=== PATIENT | male | born 1960 | race Caucasian/White ===

== ENCOUNTER 2022-08-18 09:55 | Outpatient (CLI) | payer OTHER, SELFPAY | END 2022-08-18 09:56 | disposition home or self-care (01) | LOC: NFLDREF 08-19 08:59 | PROVIDERS: PCP Emergency Medicine; Referring Provider Emergency Medicine; Visit Provider Emergency Medicine | DX: E78.00 Pure hypercholesterolemia, unspecified (principal); I10 Essential (primary) hypertension; Z12.5 Encounter for screening for malignant neoplasm of prostate | CPT/HCPCS: 80053; 80061; 84153 ==

== ENCOUNTER 2023-02-27 13:28 | Outpatient (CLI) | payer OTHER, SELFPAY ==
--- NOTE | 2023-02-27 13:45 | MR_ITS ---
[address] [address] Phone:?[phone] Fax:?[phone] Referring Physician Information: Mitch Rincon M.D. [id number] [facility] [address] Phone:?[phone] Fax:?[phone] Patient:Ab Germain D.O.B:?1960 Sex:?Male Phone:?[phone] [facility] MRN:?[id number] Exam Date:?02/27/2023 EXAM: MRI of the RIGHT KNEE, without contrast CLINICAL HISTORY: Right knee pain. Evaluate for medial meniscal tear. COMPARISONS: Plain radiographs 05/10/2018. Plain radiographs 05/08/2018. TECHNICAL: MR sequences of the right knee: sagittals: PD, PDFS coronals: PD, STIR axials: PD, T2 FS CONTRAST: None SEDATION: None FINDINGS: Bones: No fracture, bone marrow contusion, or other suspicious bone marrow signal abnormality. Patellofemoral joint: Cartilage: Diffuse slight superficial chondral fibrillation over the patella and diffuse slight grade II chondromalacia over the trochlear groove, not significantly progressed compared to previous MRI 05/08/2018. Retinacula: The medial and lateral retinacula are intact. Fat pads: The infrapatellar, quadriceps, and prefemoral fat pads are unremarkable. Knee joint: Effusion: Trace joint effusion. Popliteal cyst: None. Intra-articular bodies: None. Posteromedial corner: The semimembranosus and pes anserine tendons are intact. Medial compartment: Medial meniscus: No meniscal tear. Cartilage: Slight grade II chondromalacia over the lateral weightbearing portion of the medial femoral condyle, not significantly progressed compared to previous MRI 05/08/2018. Lateral compartment: Lateral meniscus: Horizontal tear from the anterior horn through body of the lateral meniscus and mucoid degeneration of the anterior root of the lateral meniscus, unchanged compared to previous MRI 05/10/2018. The anterior parameniscal cyst seen on previous MRI 05/10/2018 is no longer present. Cartilage: Predominantly intact. Ligaments: Anterior cruciate ligament: Intact. Posterior cruciate ligament: Intact. Medial collateral ligament: Intact. Posterior oblique ligament: Intact. Fibular collateral ligament: Intact. Posterolateral corner: The distal biceps femoris tendon, iliotibial band, popliteus tendon, popliteus muscle, popliteofibular ligament, and arcuate ligament are intact. Extensor mechanism: Patellar tendon: Intact. Quadriceps tendon: Intact. IMPRESSION: 1. Horizontal tear from the anterior horn through body of the lateral meniscus and mucoid degeneration of the anterior root of the lateral meniscus, unchanged compared to previous MRI 05/10/2018. The anterior parameniscal cyst seen on previous MRI 05/10/2018 is no longer present. 2. Trace right knee joint effusion. 3. Otherwise, essentially unremarkable MRI of the right knee without medial meniscal tear or ligamentous injury. RCB Electronically signed on 02/27/2023 3:46:00 PM by Grzegorz Cooper M.D.
== END 2023-02-27 13:29 | disposition home or self-care (01) ==
LOC: MRI 13:29
PROVIDERS: PCP Emergency Medicine; Visit Provider Orthopaedic Surgery
DX: M25.561 Pain in right knee (principal); S83.281A Other tear of lateral meniscus, current injury, right knee, initial encounter; M25.461 Effusion, right knee
CPT/HCPCS: 73721

== ENCOUNTER 2023-03-14 08:00 | Outpatient (RCR) | payer OTHER, SELFPAY | END 2023-06-08 09:56 | disposition home or self-care (01) | PROVIDERS: PCP Emergency Medicine; Visit Provider Orthopaedic Surgery | DX: M25.561 Pain in right knee (principal); M25.571 Pain in right ankle and joints of right foot; Z74.09 Other reduced mobility; R53.1 Weakness; R26.2 Difficulty in walking, not elsewhere classified; G57.00 Lesion of sciatic nerve, unspecified lower limb; M62.89 Other specified disorders of muscle; Z51.89 Encounter for other specified aftercare | CPT/HCPCS: 97110; 97161; 97162 ==

== ENCOUNTER 2023-09-13 09:16 | Outpatient (CLI) | payer OTHER, SELFPAY | END 2023-09-13 09:17 | disposition home or self-care (01) | LOC: NFLDREF 09-14 07:03 | PROVIDERS: PCP Emergency Medicine; Referring Provider Emergency Medicine; Visit Provider Emergency Medicine | DX: I10 Essential (primary) hypertension (principal); B35.6 Tinea cruris; R73.01 Impaired fasting glucose; Z12.5 Encounter for screening for malignant neoplasm of prostate; E78.2 Mixed hyperlipidemia | CPT/HCPCS: 80053; 80061; G0103 ==

== ENCOUNTER 2023-11-12 19:22 | Observation (INO) | payer OTHER, SELFPAY ==
[2023-11-12] VITALS (24 sets, daily range): BP systolic 137–168; BP diastolic 79–97; PULSE 59–70; RESP 16–18; TEMP 36.3–36.4; O2SAT 94–98; BMI 32.1; BMI 32.2
--- NOTE | 2023-11-12 19:52 | ED.GENADULT ---
HPI - General Adult General Time Seen by Provider: 19:52 Date Seen: 11/12/23 Chief complaint: Dizziness/Vertigo Stated complaint: Dizzy spells, sweating Time Seen by Provider: 11/12/23 19:48 Source: patient and RN notes reviewed Mode of arrival: ambulatory Limitations: no limitations History of Present Illness HPI narrative: This 63-year-old male is coming in with concern of episodes of vertigo, it has happened about 3 times now. The 1st time he got up from his desk around 3:00 p.m. and the room started spinning. It took probably minutes for this to settle down, not likely longer than 10 minutes. He had a 2nd episode later while he was just walking in his RV, had to sit down as he started spinning, he noted significant profuse sweating with this 1 and took probably about 30 minutes for the sweating to go way, vertigo or spinning did not last probably more than 5-10 minutes. He noted while he was lying in the bed here, just looked up to the ceiling, does not think he moves his head much, the ceiling looked like it was moving back and forth. He has been able to ambulate okay but states he does not just feel right. He has noted no double vision or blurry vision. No tinnitus or hearing changes. He has never had vertigo before. After the 1st episode, he checked his blood pressure with a wrist monitor and it was systolic of 190. He had a friend who is on the rescue service with him and came over and did a manual blood pressure, systolic was in the 150 range. He does take an 81 mg aspirin, last use last night. He is treated for hypertension and hyperlipidemia. They were worried that it could potentially be is heart. He has had no chest pain, no palpitations, no sense of irregular heartbeat, no shortness of breath. He has never had any heart disease or cardiac diagnoses before. He has a brother who has had a couple cardiac stents placed. Patient is a nonsmoker, some social alcohol use. All of these episodes have resolved in minutes. He does notably state though that he just still does not quite feel right. He has been able to walk but does not feel like it was quite normal. He would not states that he has feeling like he is listing or falling. Treatments prior to arrival: none Related Data Home Medications ?Medication ?Instructions ?Recorded ?Confirmed aspirin 81 mg tablet,delayed 81 mg PO DAILY 08/16/22 11/13/23 release (Ayanna Low Dose Aspirin) celecoxib 200 mg capsule 200 mg PO BID 11/13/23 11/13/23 lisinopril 20 1 tab PO DAILY 11/13/23 11/13/23 mg-hydrochlorothiazide 12.5 mg tablet rosuvastatin 20 mg tablet 20 mg PO HS 11/13/23 11/13/23 Allergies Allergy/AdvReac Type Severity Reaction Status Date / Time No Known Allergies Allergy Unknown Unknown Verified 09/13/23 08:14 Review of Systems Status of ROS: Reports: 6 or more systems reviewed and unremarkable except as noted in History and below [facility] Medical History (Updated 11/14/23 @ 08:12 by Mary Sosa MD) Cervical radiculopathy ?M54.12 - Radiculopathy, cervical region (ICD-10) Hyperlipidemia ?E78.5 - Hyperlipidemia, unspecified (ICD-10) Hypertension ?I10 - Essential (primary) hypertension (ICD-10) Left cervical radiculopathy ?M54.12 - Radiculopathy, cervical region (ICD-10) Tubular adenoma (07/15/20) ?D36.9 - Benign neoplasm, unspecified site (ICD-10) Tear of lateral meniscus of right knee ?S83.281A - Other tear of lateral meniscus, current injury, right knee, initial encounter (ICD-10) Right medial knee pain ?M25.561 - Pain in right knee (ICD-10) Osteoarthritis of right ankle ?M19.071 - Primary osteoarthritis, right ankle and foot (ICD-10) Pes anserinus bursitis of right knee ?M70.51 - Other bursitis of knee, right knee (ICD-10) Knee pain, right ?M25.561 - Pain in right knee (ICD-10) Elevated fasting glucose ?R73.01 - Impaired fasting glucose (ICD-10) Tinea cruris ?B35.6 - Tinea cruris (ICD-10) Screening for prostate cancer ?Z12.5 - Encounter for screening for malignant neoplasm of prostate (ICD-10) Encounter for annual physical exam ?Z00.00 - Encounter for general adult medical examination without abnormal findings (ICD-10) Surgical History S/P right knee arthroscopy (05/24/18) ?Z98.890 - Other specified postprocedural states (ICD-10) Status post arthroscopy of right shoulder (07/09/15) ?Z98.890 - Other specified postprocedural states (ICD-10) Status post arthroscopy of left shoulder (02/23/17) ?Z98.890 - Other specified postprocedural states (ICD-10) History of total left hip replacement ?Z96.642 - Presence of left artificial hip joint (ICD-10) History of colonoscopy (07/15/20) ?Z98.890 - Other specified postprocedural states (ICD-10) Family History Sister Breast cancer Brother Coronary artery disease Social History 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, What is your current living situation?: I presently have a place to live Problems where you live: no known problems Problems where you live details: n/a In the past 12 months, utilities in danger of being shut off: no In past 12 months, lack of transportation kept you from medical appts, meetings, work, or getting things needed for daily living: no In the past 12 mos, have been you worried that your food would run out before you had money to buy more?: never true In the past 12 mos, the food you bought just didn't last and you didn't have money to buy more?: never true Highest level of school completed/degree received: high school graduate Smoking Status: Never smoker How often do you have a drink containing alcohol: 2-3 times a week Alcohol type: beer Alcohol type details: reports 10 beers/week How many standard drinks containing alcohol do you have on a typical day: 1 or 2 How often do you have six or more drinks on one occasion: Never AUDIT-C Alcohol total score: 3 Non-prescribed substance use: denies use Caffeine: Yes (coffee) How often does anyone, including family, friends and others, physically hurt you: never How often does anyone, including family, friends and others, insult or talk down to you: never How often does anyone, including family, friends and others, threaten you with harm: never How often does anyone, including family, friends and others, scream or curse at you: never Little interest or pleasure in doing things: not at all Feeling down, depressed, or hopeless: not at all Exam Const: Vital Signs, click to edit/add: Vital Signs - 24 hr 11/12/23 19:28 11/12/23 19:48 11/12/23 19:49 Temperature 97.4 F L Pulse Rate 63 61 Pulse Rate [Pulse Oximeter] 64 Respiratory Rate 18 Blood Pressure 143/83 H Blood Pressure [Ri ght Upper Arm] 168/92 H Pulse Oximetry 98 95 96 Oxygen Delivery Me thod Room Air 11/12/23 20:00 11/12/23 20:02 11/12/23 20:15 Temperature Pulse Rate 61 63 64 Pulse Rate [Pulse Oximeter] Respiratory Rate Blood Pressure 151/86 H Blood Pressure [Ri ght Upper Arm] Pulse Oximetry 97 96 96 Oxygen Delivery Me thod 11/12/23 20:32 11/12/23 20:33 11/12/23 20:35 Temperature Pulse Rate 69 63 Pulse Rate [Pulse Oximeter] Respiratory Rate Blood Pressure Blood Pressure [Ri ght Upper Arm] Pulse Oximetry 98 94 97 Oxygen Delivery Me thod 11/12/23 20:37 11/12/23 20:45 11/12/23 21:04 Temperature Pulse Rate 63 59 L 69 Pulse Rate [Pulse Oximeter] Respiratory Rate Blood Pressure 144/82 H Blood Pressure [Ri ght Upper Arm] Pulse Oximetry 97 97 98 Oxygen Delivery Me thod 11/12/23 21:05 11/12/23 21:15 11/12/23 21:30 Temperature Pulse Rate 66 64 63 Pulse Rate [Pulse Oximeter] Respiratory Rate 16 Blood Pressure Blood Pressure [Ri ght Upper Arm] Pulse Oximetry 95 95 97 Oxygen Delivery Me thod 11/12/23 21:32 11/12/23 21:33 11/12/23 21:45 Temperature Pulse Rate 64 61 64 Pulse Rate [Pulse Oximeter] Respiratory Rate Blood Pressure 142/81 H Blood Pressure [Ri ght Upper Arm] Pulse Oximetry 95 96 98 Oxygen Delivery Me thod This 63-year-old male is alert, interactive, no apparent distress. He is ambulatory into the ED of his own accord. Pupils are equal round reactive, sclera clear, extraocular muscles intact with a conjugate gaze but do note some right beating horizontal nystagmus. With cover, uncover I testing there is no movement in his eyes. He does not have any catch-up saccades with moving his head. I cannot precipitate any symptoms with [place]-Hallpike maneuver on either side. Symmetrical facial function. Neck is supple, no masses, no adenopathy. Lungs are clear, good air entry, no wheezing crackles. CV regular rate and rhythm no murmur. Abdomen is soft, no rebound or guarding, organomegaly. Strength is 5/5 and symmetric throughout upper extremities and lower extremities. He has normal sensation. On left [id number], just misses his nose to the left on the left side occasionally. I note no terminal dysmetria just slightly missing terminal target. He hits the end of his nose with his right finger. No tremor. Normal sensation throughout. No lower extremity edema. Documenting provider has reviewed patient's vital signs: yes Course Course ED Course: Reviewed with patient that his symptoms seem to be consistent with vertigo, this is a neurologic process and is much less concerning for any cardiac issue. We did discuss the need to ensure no underlying rhythm disturbance, EKG obtained on arrival shows sinus bradycardia, he is in sinus rhythm on the monitor while I am in with him, will continue on cardiac monitoring. Discussed that it can be difficult to figure out of its peripheral versus central. Will proceed with head CT and will just talk to Neurology. They may recommend doing the CTA. His symptoms certainly seem to be consistent with peripheral vertigo process but he does have risk factors for central disease. Did reassure them that we will do a troponin. Will give full complement of labs. Reevaluation(s) Time of Reevaluation #1: 20:32 Reevaluation #1: Nursing staff notified me that patient became acutely dizzy with spinning again, was nauseated. Initiate normal saline and Zofran, will order meclizine for him and low-dose IV Versed as Ativan is in short supply. Time of Reevaluation #2: 22:10 Consultations Consultation #1: Did contact Stroke Neurology and spoke with Dr. Barahona. Given the severity of his episode with the sweating, non reproducible with [place]-Hallpike, he did want to proceed with the vessel imaging. We cannot do MRI at this time, he will have me do CT angio of the head neck. Has had his head CT already, we will push all these images up to him. 22:01 Dr. Barahona did call back. 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 He thinks given that this patient is having fluctuating symptoms, should be observed. MRI of his brain could be done tomorrow. Time: 20:30 Consultation #2: Did speak with hospitalist Dr. Alexandra. He will review patient's chart, be down shortly and we will discuss patient further for observation hospitalization an MRI tomorrow. Time: 22:14 Vital Signs Vital signs: Initial Vital Signs Temperature 97.4 F L 11/12/23 19:28 Temperature Source Temporal Artery Scan 11/12/23 19:28 Pulse Rate 64 11/12/23 19:28 Respiratory Rate 18 11/12/23 19:28 Blood Pressure 168/92 H 11/12/23 19:28 Blood Pressure Mean 117 H 11/12/23 19:28 Pulse Oximetry 98 11/12/23 19:28 Oxygen Delivery Method Room Air 11/12/23 19:28 Vital Signs Temperature 97.4 F L 11/12/23 19:28 Pulse Rate 64 11/12/23 19:28 Respiratory Rate 18 11/12/23 19:28 Blood Pressure 168/92 H 11/12/23 19:28 Pulse Oximetry 98 11/12/23 19:28 Oxygen Delivery Method Room Air 11/12/23 19:28 Temperature 97.6 F 11/13/23 10:36 Pulse Rate 74 11/13/23 10:36 Respiratory Rate 18 11/13/23 10:36 Blood Pressure 144/88 H 11/13/23 10:46 Pulse Oximetry 96 11/13/23 10:36 Oxygen Delivery Method Room Air 11/13/23 10:36 Medications Administered Medications: Discontinued Medications Generic Name Dose Route Start Last Admin Trade Name Freq PRN Reason Stop Dose Admin Aspirin 81 mg 11/12/23 22:11 11/12/23 22:22 Aspirin 81 Mg Tab.Chew PO 11/12/23 22:12 81 mg ONCE ONE Administration Aspirin 81 mg 11/13/23 09:00 06/18/24 09:41 Aspirin 81 Mg Tablet Ec PO 81 mg DAILY VI Administration Diazepam 5 mg 11/12/23 20:39 11/12/23 20:52 Diazepam 5 Mg Tablet PO 11/12/23 20:40 5 mg ONCE ONE Administration Hydrochlorothiazide 12.5 mg 11/13/23 09:00 11/13/23 09:42 Hydrochlorothiazide 12.5 Mg Capsule PO 12.5 mg DAILY VI Administration Sodium Chloride 1,000 mls @ 1,000 mls/hr 11/12/23 20:34 11/12/23 21:55 0.9 % Sodium Chloride 1000 Ml IV 11/12/23 21:33 Infused .Q1H VI Infusion Lisinopril 20 mg 11/13/23 09:00 11/13/23 09:41 Lisinopril 20 Mg Tablet PO 20 mg DAILY VI Administration Meclizine HCl 25 mg 11/12/23 20:35 11/12/23 20:53 Meclizine Hcl 25 Mg Tablet PO 11/12/23 20:36 25 mg ONCE ONE Administration Ondansetron HCl 4 mg 11/12/23 20:33 11/12/23 20:52 Ondansetron 2 Mg/Ml Inj IVP 11/12/23 20:34 4 mg ONCE ONE Administration Rosuvastatin Calcium 20 mg 11/12/23 23:30 11/13/23 02:58 Rosuvastatin Calcium 10 Mg Tablet PO 20 mg HS VI Administration Sodium Chloride 5 ml 11/13/23 09:00 11/13/23 09:42 Sodium Chloride 0.9 % (Flush) 10 Ml Syringe IVF 5 ml BID VI Administration Medical Decision Making Lab Data Lab results reviewed: Yes I reviewed the patient's lab results Labs: Lab Results 11/12/23 Range/Units 20:38 WBC 11.66 H (4.50-11.00) K/uL RBC 4.54 (4.30-5.90) m/uL Hgb 13.9 (13.5-17.5) gm/dL Hct 41.8 (37.0-53.0) % MCV 92 (80-100) fL MCH 31 (26-34) pg MCHC 33 (32-36) gm/dL RDW Coeff of Zo 12.4 (11.5-15.5) % Plt Count 201 (140-440) K/uL Neut % (Auto) 81.9 H (42.0-72.0) % Lymph % (Auto) 11.2 L (20-44) % Woodson % (Auto) 5.7 (0.0-11.0) % Eos % (Auto) 0.7 (0.0-7.0) % Baso % (Auto) 0.2 (0.0-3.0) % Neut # (Auto) 9.50 H (1.7-7.0) K/uL Lymph # (Auto) 1.30 (0.90-2.90) K/uL Woodson # (Auto) 0.70 (0.00-0.90) K/UL Eos # (Auto) 0.10 (0.00-0.50) K/uL Baso # (Auto) 0.00 (0.00-0.30) K/uL Abs Immat Gran (auto) 0.00 (0.00-0.30) K/uL Imm/Tot Granulo (auto) 0.3 % INR 1.02 (0.91-1.10) APTT 26 (23-33) Seconds Sodium 137 (135-149) mmol/L Potassium 4.0 (3.6-5.1) mmol/L Chloride 106 (96-114) mmol/L Carbon Dioxide 25 (20-32) mmol/L Anion Gap 6 L (7-15) mEq/L BUN 20 (7-30) mg/dL Creatinine 0.9 (0.5-1.5) mg/dL Estimated Creat Clear 79.48 Estimated GFR 95 ml/min Glucose 119 H (60-115) mg/dL Calcium 9.1 (8.4-10.6) mg/dL Magnesium 2.2 (1.5-2.6) mg/dL Total Bilirubin 0.6 (0.1-1.5) mg/dL AST 27 (12-35) U/L ALT 24 (4-50) U/L Alkaline Phosphatase 61 (40-150) U/L Troponin I < 0.01 L (0.01-0.04) ng/mL NT-Pro-B Natriuret Pep 135 pg/mL Total Protein 6.3 (6.0-8.3) g/dL Albumin 4.2 (3.3-5.0) g/dL TSH 1.670 (0.270-4.200) uIU/mL Imaging Data CT scan - head: Attestation: I have reviewed the pertinent imaging results. Radiologist's impression: Patient: KANDI TORO Facility:?[facility] Patient ID:?[id number] Site Patient ID:?[id number]. Site :?1960 Study:?CT-Head W/O-11/12/2023 8:32:10 PM Ordering Physician:Tutu Hernandez Final Report: Indication: Vertigo. Technique: CT of the brain was performed without intravenous contrast. Comparison: None relevant available at this institution. Findings: No acute blurring of the phelps-white differentiation. There is no intracranial hemorrhage. The ventricles are proportionate to the cerebral sulci. The 4th ventricle is midline. Basal cisterns appear patent. No abnormal extra-axial fluid collection identified. There is no intracranial mass, mass effect or midline shift identified. No depressed calvarial fracture. Impression: No acute intracranial process. Please note that all CT scans at this facility use dose modulation, iterative reconstruction, and/or weight-based dosing when appropriate to reduce radiation dose to as low as reasonably achievable. Dictated by Dao Sherman MD @ 11/12/2023 9:02:10 PM (Electronic Signature) CT- Other: Attestation: I have reviewed the pertinent imaging results. Radiologist's impression: Patient: KANDI TORO Facility:?[facility] Patient ID:?[id number] Site Patient ID:?[id number]. Site :?1960 Study:?CT-Neck Angio CTA NECK W/ISOVUE 370 95CC-11/12/2023 9:11:56 PM Ordering Physician:?Sheila Hernandez Preliminary Report: Preliminary Report: : CTA head: No proximal intracranial arterial occlusions, filling defects or high-grade stenoses. CTA neck: Moderate right proximal internal carotid atherosclerotic disease. Left internal carotid artery is patent. No dissection identified. Dictated by Dao Sherman MD @ 11/12/2023 9:26:17 PM Read by:?Dao Sherman MD @11/12/2023 9:26:31 PM ECG Data Attestation: I personally reviewed and interpreted this ECG as follows: (Sinus bradycardia, 58 beats per minute. No ischemia or infarct. QT corrected 426 milliseconds.) Prior ECG tracings: not available for review Discharge Plan Discharge Clinical Impression: Vertigo Patient Disposition: Admitted As Observation Condition: Improved Activity Level: Activity as Tolerated Discharge Diet: Regular
--- NOTE | 2023-11-12 20:13 | CRLHL7_ITS ---
For Patients: As a result of the Century Cures Act, medical imaging exams and procedure reports are released immediately into your electronic medical record. You may view this report before your referring provider. If you have questions, please contact your health care provider. Indication: Vertigo. Technique: CT of the brain was performed without intravenous contrast. Comparison: None relevant available at this institution. Findings: No acute blurring of the phelps-white differentiation. There is no intracranial hemorrhage. The ventricles are proportionate to the cerebral sulci. The 4th ventricle is midline. Basal cisterns appear patent. No abnormal extra-axial fluid collection identified. There is no intracranial mass, mass effect or midline shift identified. No depressed calvarial fracture. Impression: No acute intracranial process. Please note that all CT scans at this facility use dose modulation, iterative reconstruction, and/or weight-based dosing when appropriate to reduce radiation dose to as low as reasonably achievable. Dictated by Dao Sherman MD @ 11/12/2023 9:02:10 PM (Electronically Signed)
--- NOTE | 2023-11-12 20:35 | CRLHL7_ITS ---
For Patients: As a result of the Century Cures Act, medical imaging exams and procedure reports are released immediately into your electronic medical record. You may view this report before your referring provider. If you have questions, please contact your health care provider. DATE: 11/12/2023 CLINICAL HISTORY: Patient with vertigo. TECHNIQUE: Standard helical CT image acquisition through the intracranial circulation following intravenous administration of contrast material with bolus tracking. 2D and 3D MIP images for post-processing were performed and interpreted on an independent workstation and 3D images were permanently archived. COMPARISON: CT same day. FINDINGS: There is no cerebral aneurysm or large vessel occlusion. There is a prominent venous plexus in the region of the right foramen of Luschka. The right internal carotid artery is normal. The right middle cerebral artery and its branches are normal. The right anterior cerebral artery and its branches are normal. The left internal carotid artery is normal. The left middle cerebral artery and its branches are normal. The left anterior cerebral artery and its branches are normal. The anterior communicating artery is well visualized and appears normal. The right vertebral artery and PICA are normal. The left vertebral artery and PICA are normal. The right vertebral artery is dominant. The basilar artery is patent and appears normal. The right posterior cerebral artery is normal. The left posterior cerebral artery is normal. The visualized venous structures are patent. IMPRESSION: Patent proximal intracranial vasculature without intracranial aneurysms. Please note that all CT scans at this facility use dose modulation, iterative reconstruction, and/or weight-based dosing when appropriate to reduce radiation dose to as low as reasonably achievable. Dictated by Cris Song MD @ 11/13/2023 10:24:01 AM (Electronically Signed)
--- NOTE | 2023-11-12 20:35 | CRLHL7_ITS ---
For Patients: As a result of the Century Cures Act, medical imaging exams and procedure reports are released immediately into your electronic medical record. You may view this report before your referring provider. If you have questions, please contact your health care provider. DATE: 11/12/2023 CLINICAL HISTORY: Patient with vertigo. TECHNIQUE: Standard helical CT image acquisition of the neck up to the skull base after bolus intravenous contrast enhancement. 2D and 3D MIP images for post-processing were performed and interpreted on an independent workstation and 3D images were permanently archived. COMPARISON: CT same day. FINDINGS: The origins of the great vessels from the aortic arch are patent. The origin of the right vertebral artery is patent. The origin of the left vertebral artery is patent. The common carotid arteries are patent. There is a mild (<50%) stenosis at the origin of the right internal carotid artery by NASCET criteria. This is caused by non-calcified plaque with a <2mm residual lumen. There is no stenosis at the origin of the left internal carotid artery by NASCET criteria. The rest of the cervical segments of the internal carotid arteries are patent up to the skull base. The right vertebral artery is dominant. The cervical segments of the vertebral arteries are patent up to the skull base. The visualized lung apices are unremarkable. The thyroid gland is unremarkable. The soft tissues of the neck are unremarkable. There are degenerative changes in the cervical spine. IMPRESSION: Mild (<50%) stenosis at the origin of the right internal carotid artery by NASCET criteria. This is caused by non-calcified plaque with a <2mm residual lumen. Please note that all CT scans at this facility use dose modulation, iterative reconstruction, and/or weight-based dosing when appropriate to reduce radiation dose to as low as reasonably achievable. Dictated by Cris Song MD @ 11/13/2023 10:13:27 AM (Electronically Signed)
[2023-11-12 20:44] LABS: Basophils Percent Auto 0.2 % (0.0-3.0); Eosinophils Percent Auto 0.7 % (0.0-7.0); Hematocrit 41.8 % (37.0-53.0); Hemoglobin* 13.9 gm/dL (13.5-17.5); Immature Granulocytes Pct Auto 0.3 %; Lymphocytes Percent Auto 11.2 % (20-44); Mean Corpuscular HGB Conc 33 gm/dL (32-36); Mean Corpuscular Hemoglobin 31 pg (26-34); Mean Corpuscular Volume 92 fL (80-100); Monocytes Percent Auto 5.7 % (0.0-11.0); Neutrophils Percent Auto 81.9 % (42.0-72.0); Platelet Count* 201 K/uL (140-440); RDW Coefficient of Variation % 12.4 % (11.5-15.5); Red Blood Count 4.54 m/uL (4.30-5.90); White Blood Count* 11.66 K/uL (4.50-11.00)
[2023-11-12] MEDS: 0.9 % SODIUM CHLORIDE 1000 ml 1,000 ML IV (20:44)
[2023-11-12] MEDS: ONDANSETRON 2 MG/ML inj 4 MG IVP (20:52)
[2023-11-12] MEDS: diazePAM 5 MG TABLET PO (20:52)
[2023-11-12] MEDS: MECLIZINE HCL 25 MG TABLET PO (20:53)
[2023-11-12 20:56] LABS: Slide Review Reflex No
[2023-11-12 21:00] LABS: Albumin* 4.2 g/dL (3.3-5.0); Chloride* 106 mmol/L (96-114)
[2023-11-12 21:01] LABS: INR 1.02 (0.91-1.10); Sodium* 137 mmol/L (135-149)
[2023-11-12 21:02] LABS: Partial Thromboplastin Time* 26 Seconds (23-33)
[2023-11-12 21:03] LABS: Alanine Aminotransferase* 24 U/L (4-50); Alkaline Phosphatase* 61 U/L (40-150); Anion Gap 6 mEq/L (7-15); Aspartate Amino Transferase* 27 U/L (12-35); Bilirubin Total* 0.6 mg/dL (0.1-1.5); Blood Urea Nitrogen* 20 mg/dL (7-30); Calcium* 9.1 mg/dL (8.4-10.6); Carbon Dioxide* 25 mmol/L (20-32); Creatinine* 0.9 mg/dL (0.5-1.5); Est. Creatinine Clearance* 79.48; Estimated Glomerular Filt Rate 95 ml/min; Glucose* 119 mg/dL (60-115); Total Protein* 6.3 g/dL (6.0-8.3)
[2023-11-12 21:04] LABS: Magnesium* 2.2 mg/dL (1.5-2.6)
[2023-11-12 21:14] LABS: NT Pro B Type NatriureticPept* 135 pg/mL; Troponin I* < 0.01 ng/mL (0.01-0.04)
[2023-11-12] MEDS: ASPIRIN 81 MG TAB.CHEW PO (22:22)
--- NOTE | 2023-11-12 23:25 | P.IMHP_ITS ---
Hospitalist- H&P: HPI History of Present Illness Date Seen: 11/12/23 Chief complaint: Dizzy spells, sweating Narrative: Sami Germain is a 63 year old man presents to the [facility] Emergency Department this evening with complaint of sudden, new onset vertigo. Has never had any such episodes in the past. Was working at his desk and stood up around 3:00 p.m. today and had the sudden onset of spinning vertigo. This resolved in about 5-10 minutes. Around 6:00 p.m. today he was working in his RV, when he had another episode that lasted 5-10 minutes. This time he had sweating in association with this. Sweating seemed to last a little longer. Did not feel well afterward. Noticed his blood pressure was elevated. Wrist blood pressure cuff measured systolic value of 190 an arm blood pressure cuff measured systolic value of 164 mmHg. Called and spoke with a few of his EMT friends who recommended he come in for further assessment. Since being in the emergency department he had 2 more such episodes. Both of these occurred as he was moving about. Second 1 occurred is use was being wheeled back to the emergency department after having a CT scan of the head. This 2nd episode seemed to last longer, until he was given a dose of diazepam intravenously at which time his symptoms seemed to resolve. Only after this that he start to feel close to being right again. Denies any other focal neurologic abnormalities in association with this. Denies headache. Review of Systems Status of ROS: Reports: 10 or more systems reviewed and unremarkable except as noted in History and below Narrative: He was concerned that he might be having a heart attack. No symptoms of such. Has never used any tobacco or nicotine products. Does drink about 12 beers per week. Last time he had a drink of alcohol was yesterday. Does not have alcohol withdrawal symptoms. 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 Lives with his . [facility] Medical History (Updated 11/12/23 @ 23:44 by Jabier Alexandra MD) Cervical radiculopathy ?M54.12 - Radiculopathy, cervical region (ICD-10) Hyperlipidemia ?E78.5 - Hyperlipidemia, unspecified (ICD-10) Hypertension ?I10 - Essential (primary) hypertension (ICD-10) Left cervical radiculopathy ?M54.12 - Radiculopathy, cervical region (ICD-10) Tubular adenoma (07/15/20) ?D36.9 - Benign neoplasm, unspecified site (ICD-10) Tear of lateral meniscus of right knee ?S83.281A - Other tear of lateral meniscus, current injury, right knee, initial encounter (ICD-10) Right medial knee pain ?M25.561 - Pain in right knee (ICD-10) Osteoarthritis of right ankle ?M19.071 - Primary osteoarthritis, right ankle and foot (ICD-10) Pes anserinus bursitis of right knee ?M70.51 - Other bursitis of knee, right knee (ICD-10) Knee pain, right ?M25.561 - Pain in right knee (ICD-10) Elevated fasting glucose ?R73.01 - Impaired fasting glucose (ICD-10) Tinea cruris ?B35.6 - Tinea cruris (ICD-10) Screening for prostate cancer ?Z12.5 - Encounter for screening for malignant neoplasm of prostate (ICD-10) Encounter for annual physical exam ?Z00.00 - Encounter for general adult medical examination without abnormal findings (ICD-10) Surgical History S/P right knee arthroscopy (05/24/18) ?Z98.890 - Other specified postprocedural states (ICD-10) Status post arthroscopy of right shoulder (07/09/15) ?Z98.890 - Other specified postprocedural states (ICD-10) Status post arthroscopy of left shoulder (02/23/17) ?Z98.890 - Other specified postprocedural states (ICD-10) History of total left hip replacement ?Z96.642 - Presence of left artificial hip joint (ICD-10) History of colonoscopy (07/15/20) ?Z98.890 - Other specified postprocedural states (ICD-10) Family History Sister Breast cancer Brother Coronary artery disease Social History 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, Smoking Status: Never smoker Little interest or pleasure in doing things: not at all Feeling down, depressed, or hopeless: not at all Meds Home Medications and Allergies Home Medications ?Medication ?Instructions ?Recorded ?Confirmed ?Type aspirin 81 mg tablet,delayed 81 mg PO QDAY 08/16/22 11/12/23 History release (Ayanna Low Dose Aspirin) Home Medication Comments: Lisinopril 20 mg/hydrochlorothiazide 12.5 mg, 1 tab daily Rosuvastatin 20 mg daily Allergies Allergy/AdvReac Type Severity Reaction Status Date / Time No Known Allergies Allergy Unknown Unknown Verified 09/13/23 08:14 Exam Narrative: Exam Narrative: Examine him in the emergency department. Appears comfortable. Vision and hearing are adequate. Friendly, articulate, cooperative. Alert, oriented to self, place, time, situation. Tympanic membranes are normal. Midline nasal septum. Dentition in good repair. Buccal mucosa is moist. No interest or conjunctival injection. Conjugate gaze. No spontaneous or inducible nystagmus. Midline trachea. Neck is supple. Soft carotid bruit on right. No carotid bruit on left. No JVD. Lungs clear to auscultation. Heart tones with regular rhythm, normal S1-S2. No obvious murmur, gallop, or rub. PMI not laterally displaced. Abdomen with active bowel sounds, soft, nontender. No organomegaly or masses. No focal motor neurologic deficits. No tremor, asterixis, or ataxia. Cranial nerves 3-12 grossly normal. Const: Vital Signs, click to edit/add: Vital Signs - 24 hr 11/12/23 19:28 11/12/23 19:48 11/12/23 19:49 Temperature 97.4 F L Pulse Rate 63 61 Pulse Rate [Pulse Oximeter] 64 Respiratory Rate 18 Blood Pressure 143/83 H Blood Pressure [Ri ght Upper Arm] 168/92 H Pulse Oximetry 98 95 96 Oxygen Delivery Me thod Room Air 11/12/23 20:00 11/12/23 20:02 11/12/23 20:15 Temperature Pulse Rate 61 63 64 Pulse Rate [Pulse Oximeter] Respiratory Rate Blood Pressure 151/86 H Blood Pressure [Ri ght Upper Arm] Pulse Oximetry 97 96 96 Oxygen Delivery Me thod 11/12/23 20:32 11/12/23 20:33 11/12/23 20:35 Temperature Pulse Rate 69 63 Pulse Rate [Pulse Oximeter] Respiratory Rate Blood Pressure Blood Pressure [Ri ght Upper Arm] Pulse Oximetry 98 94 97 [facility] 20:37 11/12/23 20:45 11/12/23 21:04 Temperature Pulse Rate 63 59 L 69 Pulse Rate [Pulse Oximeter] Respiratory Rate Blood Pressure 144/82 H Blood Pressure [Ri ght Upper Arm] Pulse Oximetry 97 97 98 [facility] 11/12/23 21:05 11/12/23 21:15 11/12/23 21:30 Temperature Pulse Rate 66 64 63 Pulse Rate [Pulse Oximeter] Respiratory Rate 16 Blood Pressure Blood Pressure [Ri ght Upper Arm] Pulse Oximetry 95 95 97 [facility] 11/12/23 21:32 11/12/23 21:33 11/12/23 21:45 Temperature Pulse Rate 64 61 64 Pulse Rate [Pulse Oximeter] Respiratory Rate Blood Pressure 142/81 H Blood Pressure [Ri ght Upper Arm] Pulse Oximetry 95 96 98 Oxygen Delivery [facility] 11/12/23 22:00 11/12/23 22:02 11/12/23 22:15 Temperature Pulse Rate 64 62 70 Pulse Rate [Pulse Oximeter] Respiratory Rate 16 Blood Pressure 137/79 Blood Pressure [Ri ght Upper Arm] Pulse Oximetry 95 96 98 Oxygen Delivery [facility] Hospitalist - H&P: Result Labs Labs: Short CBC 11/12/23 Range/Units 20:38 WBC 11.66 H (4.50-11.00) K/uL Hgb 13.9 (13.5-17.5) gm/dL Hct 41.8 (37.0-53.0) % Plt Count 201 (140-440) K/uL BMP 11/12/23 20:38 Sodium 137 Potassium 4.0 Chloride 106 Carbon Dioxide 25 BUN 20 Creatinine 0.9 Glucose 119 H Calcium 9.1 Cardiac Enzymes 11/12/23 Range/Units 20:38 Troponin I < 0.01 L (0.01-0.04) ng/mL Liver Function 11/12/23 Range/Units 20:38 Total Bilirubin 0.6 (0.1-1.5) mg/dL AST 27 (12-35) U/L ALT 24 (4-50) U/L Alkaline Phosphatase 61 (40-150) U/L Albumin 4.2 (3.3-5.0) g/dL ECG Attestation: I personally reviewed and interpreted this ECG as follows: ECG interpretation date: 11/12/23 Interpretation: Sinus bradycardia without ischemic changes. Imaging CT scan - head: Radiologist's impression: 1. No acute intracranial process. 2. CT angiogram of neck demonstrates moderate right proximal internal carotid atherosclerotic disease with left internal carotid artery being patent. 3. CT angiogram of head demonstrates small focus of stenosis in the P1 branch of the left posterior cerebellar artery, according to stroke neurologist. Assessment and Plan Assessment and plan (1) Acute onset of severe vertigo: Problem comment: 1. Differential diagnosis includes benign paroxysmal positional vertigo versus cerebrovascular induced vertigo. 2. CT angiogram of head suggests small focus of stenosis in the P1 branch of the left posterior cerebellar artery. 3. Stroke neurologist recommends overnight observation and obtain an MR scan of the brain tomorrow. Additionally I will order telemetry, repeat EKG, echo to assess for anatomic abnormalities including PFO, VSD, ASD, serial neuro assessments, lipid panel, hemoglobin A1c, C-reactive protein, erythrocyte sedimentation rate, RPR. -will continue her aspirin 81 mg daily, rosuvastatin 20 mg once daily, and pressure controlling medications for now. Consider additional recommendations based on findings. Consider neurology outpatient consultation. Status: Acute (2) Alcohol use: Problem comment: -recommended patient decrease his alcohol consumption it is to at the very most 7 drinks per week to lower his risk of complications associated there with. Status: Acute Plan 1. Reviewed my impressions and recommendation with patient. 2. Answered his questions to satisfaction. 3. Patient agreeable with above stated plans and recommendations. Total Time Spent Total Time Spent: 65 minutes
[2023-11-13] MEDS: ROSUVASTATIN CALCIUM 10 MG TABLET 20 MG PO (02:58)
[2023-11-13 03:00] VITALS: BP 134/81; PULSE 70; RESP 16; TEMP 36.9; O2SAT 96
--- NOTE | 2023-11-13 06:30 | PC.NURSE ---
pleasant and cooperative. no c/o dizziness since admin to floor. SBA, no dizziness with ambulation to BR. Neuro checks unremarkable. VSS. Tele & EKG = NSR. HR 60s at rest. pt to have ECHO and MRI 11/12.
[2023-11-13 06:46] LABS: Hematocrit 42.2 % (37.0-53.0); Hemoglobin* 14.2 gm/dL (13.5-17.5); Mean Corpuscular HGB Conc 34 gm/dL (32-36); Mean Corpuscular Hemoglobin 31 pg (26-34); Mean Corpuscular Volume 92 fL (80-100); Platelet Count* 199 K/uL (140-440); White Blood Count* 8.08 K/uL (4.50-11.00)
[2023-11-13 06:50] LABS: Slide Review Reflex No
[2023-11-13 07:00] VITALS: BP 134/84; PULSE 70; RESP 16; TEMP 36.9; O2SAT 96
[2023-11-13 07:07] LABS: Cholesterol* 163 mg/dL (90-199)
[2023-11-13 07:08] LABS: HDL Cholesterol* 56 mg/dL (>=40); LDL Cholesterol Calculated 91 mg/dL (<100); Triglycerides* 82 mg/dL (40-149)
[2023-11-13 07:14] LABS: Hemoglobin A1C* 5.6 % (0-5.6)
[2023-11-13 07:15] LABS: C Reactive Protein* < 0.5 mg/dL (0.5-1.0)
[2023-11-13 07:16] VITALS: PULSE 60
[2023-11-13 07:46] LABS: Erythrocyte SedimentationRate* 2 mm/hr (2-15)
--- NOTE | 2023-11-13 08:01 | CRLHL7_ITS ---
For Patients: As a result of the Century Cures Act, medical imaging exams and procedure reports are released immediately into your electronic medical record. You may view this report before your referring provider. If you have questions, please contact your health care provider. Indication Vertigo. Technique Multiplanar multisequence noncontrast MR images of the brain. COMPARISON: CT brain 11/12/2023. FINDINGS: Mild diffuse cerebral volume loss. No mass effect or midline shift. No significant parenchymal signal abnormalities. No intracranial hemorrhage or pathologic extra-axial fluid collection. No diffusion restriction to suggest acute infarction. The major arterial flow voids at the skullbase are preserved. The globes are symmetric. Minimal paranasal sinus mucosal thickening. Trace right mastoid fluid. IMPRESSION: No infarction, mass effect, or intracranial hemorrhage. Dictated by Sebastian Costello MD @ 11/13/2023 10:27:25 AM (Electronically Signed)
[2023-11-13] MEDS: ASPIRIN 81 MG TABLET EC PO (09:41)
[2023-11-13] MEDS: lisinopriL 20 MG TABLET PO (09:41)
[2023-11-13] MEDS: SODIUM CHLORIDE 0.9 % (FLUSH) 10 ML SYRINGE 5 ML IVF (09:42)
[2023-11-13] MEDS: hydroCHLOROthiazide 12.5 MG CAPSULE PO (09:42)
[2023-11-13 10:36] VITALS: BP 146/80; PULSE 74; RESP 18; TEMP 36.4; O2SAT 96
[2023-11-13 10:46] VITALS: BP 140/81; BP 141/93; BP 144/88
--- NOTE | 2023-11-13 11:08 | PM.DS1 ---
DS: Providers Provider Date Seen: 11/13/23 Date of admission: 11/12/23 22:54 Primary care physician: Serena Carmichael Admitting Clinician: Jabier Alexandra MD Consults: PT and OT Attending Physician on discharge: Shakira Calderon MD Date of Discharge: 11/13/23 DS: Diagnosis Discharge Diagnosis (1) Acute onset of severe vertigo: Status: Acute Problem details: - noted on 11/12/23 - ddx: BPPV vs cerebrovascular induced vertigo - in ED, CT angiogram of head suggests small focus of stenosis in the P1 branch of the left posterior cerebellar artery - Stroke Neurology consulted during stay, no significant changes recommended - patient had normal MRI on 11/12, no evidence of orthostatic hypotension, and resolution of symptoms - no echocardiogram tech available for TTE on 11/12, exam deferred given reassuring clinical picture upon discharge - A1C 5.6, LDL 91 - routine outpatient f/u with PCP DS: Summary Hospital Course Hospital Course: Sami is a 63-year-old male who presented to the hospital on 11/11 with acute onset of vertigo. ER imaging revealed the findings as noted above. On hospital day 1, patient noticed complete resolution of symptoms; MRI brain was normal, LDL and A1c reassuring. Patient seen by therapy teams and Stroke Neurology, no further recommendations noted upon discharge. He was appropriate for discharge home with close PCP follow-up on 11/13/2023. Status at Discharge Functional status at discharge: independent ambulation Overall status at discharge: patient is back to baseline Time Spent with Patient Time attestation: Total time spent providing and/or coordinating discharge services: Time spent: Less than 30 minutes Exam Narrative: Exam Narrative: GEN: Alert HEENT: EOMIs bilaterally, no scleral icterus CV: RRR, No concerning murmurs, no carotid bruits R: LCTA bilaterally without concerning wheezing Ext: wwp, no concerning edema Skin: No concerning skin lesions or rashes on exposed skin Neuro: No focal deficits, no resting tremor, no asterixis Psych: Appropriate Const: Vital Signs, click to edit/add: Vital Signs - 24 hr 11/12/23 19:28 11/12/23 19:48 11/12/23 19:49 Temperature 97.4 F L Pulse Rate 63 61 Pulse Rate [Pulse Oximeter] 64 Respiratory Rate 18 Blood Pressure 143/83 H Blood Pressure [Le ft Arm] Blood Pressure [Ri ght Upper Arm] 168/92 H Blood Pressure [or thostatic lying] Blood Pressure [or thostatic sitting Left Arm] Blood Pressure [or thostatic standing ] Pulse Oximetry 98 95 96 Oxygen Delivery Me thod Room Air 11/12/23 20:00 11/12/23 20:02 11/12/23 20:15 Temperature Pulse Rate 61 63 64 Pulse Rate [Pulse Oximeter] Respiratory Rate Blood Pressure 151/86 H Blood Pressure [Le ft Arm] Blood Pressure [Ri ght Upper Arm] Blood Pressure [or thostatic lying] Blood Pressure [or thostatic sitting Left Arm] Blood Pressure [or thostatic standing ] Pulse Oximetry 97 96 96 Oxygen Delivery Me thod 11/12/23 20:32 11/12/23 20:33 11/12/23 20:35 Temperature Pulse Rate 69 63 Pulse Rate [Pulse Oximeter] Respiratory Rate Blood Pressure Blood Pressure [Le ft Arm] Blood Pressure [Ri ght Upper Arm] Blood Pressure [or thostatic lying] Blood Pressure [or thostatic sitting Left Arm] Blood Pressure [or thostatic standing ] Pulse Oximetry 98 94 97 Oxygen Delivery Me thod 11/12/23 20:37 11/12/23 20:45 11/12/23 21:04 Temperature Pulse Rate 63 59 L 69 Pulse Rate [Pulse Oximeter] Respiratory Rate Blood Pressure 144/82 H Blood Pressure [Le ft Arm] Blood Pressure [Ri ght Upper Arm] Blood Pressure [or thostatic lying] Blood Pressure [or thostatic sitting Left Arm] Blood Pressure [or thostatic standing ] Pulse Oximetry 97 97 98 Oxygen Delivery Me thod 11/12/23 21:05 11/12/23 21:15 11/12/23 21:30 Temperature Pulse Rate 66 64 63 Pulse Rate [Pulse Oximeter] Respiratory Rate 16 Blood Pressure Blood Pressure [Le ft Arm] Blood Pressure [Ri ght Upper Arm] Blood Pressure [or thostatic lying] Blood Pressure [or thostatic sitting Left Arm] Blood Pressure [or thostatic standing ] Pulse Oximetry 95 95 97 Oxygen Delivery Me thod 11/12/23 21:32 11/12/23 21:33 11/12/23 21:45 Temperature Pulse Rate 64 61 64 Pulse Rate [Pulse Oximeter] Respiratory Rate Blood Pressure 142/81 H Blood Pressure [Le ft Arm] Blood Pressure [Ri ght Upper Arm] Blood Pressure [or thostatic lying] Blood Pressure [or thostatic sitting Left Arm] Blood Pressure [or thostatic standing ] Pulse Oximetry 95 96 98 Oxygen Delivery Me thod 11/12/23 22:00 11/12/23 22:02 11/12/23 22:15 Temperature Pulse Rate 64 62 70 Pulse Rate [Pulse Oximeter] Respiratory Rate 16 Blood Pressure 137/79 Blood Pressure [Le ft Arm] Blood Pressure [Ri ght Upper Arm] Blood Pressure [or thostatic lying] Blood Pressure [or thostatic sitting Left Arm] Blood Pressure [or thostatic standing ] Pulse Oximetry 95 96 98 Oxygen Delivery Me thod 11/12/23 23:01 11/12/23 23:38 11/12/23 23:41 Temperature 97.6 F Pulse Rate 64 Pulse Rate [Pulse Oximeter] 65 Respiratory Rate 16 16 Blood Pressure Blood Pressure [Le ft Arm] 168/97 H Blood Pressure [Ri ght Upper Arm] Blood Pressure [or thostatic lying] Blood Pressure [or thostatic sitting Left Arm] Blood Pressure [or thostatic standing ] Pulse Oximetry 95 98 Oxygen Delivery Wi thod Room Air Room Air 11/13/23 03:00 11/13/23 07:00 11/13/23 07:00 Temperature 98.5 F Pulse Rate Pulse Rate [Pulse Oximeter] 70 70 Respiratory Rate 16 16 16 Blood Pressure Blood Pressure [Le ft Arm] 134/81 Blood Pressure [Ri ght Upper Arm] Blood Pressure [or thostatic lying] Blood Pressure [or thostatic sitting Left Arm] Blood Pressure [or thostatic standing ] Pulse Oximetry 96 96 Oxygen Delivery Wi thod Room Air Room Air 11/13/23 07:00 11/13/23 07:16 11/13/23 10:36 Temperature 98.5 F 97.6 F Pulse Rate 60 Pulse Rate [Pulse Oximeter] 70 74 Respiratory Rate 16 18 Blood Pressure Blood Pressure [Le ft Arm] 134/84 146/80 H Blood Pressure [Ri ght Upper Arm] Blood Pressure [or thostatic lying] Blood Pressure [or thostatic sitting Left Arm] Blood Pressure [or thostatic standing ] Pulse Oximetry 96 96 Oxygen Delivery Me thod Room Air Room Air 11/13/23 10:46 Temperature Pulse Rate Pulse Rate [Pulse Oximeter] Respiratory Rate Blood Pressure Blood Pressure [Le ft Arm] Blood Pressure [Ri ght Upper Arm] Blood Pressure [or thostatic lying] 140/81 H Blood Pressure [or thostatic sitting Left Arm] 144/88 H Blood Pressure [or thostatic standing ] 141/93 H Pulse Oximetry Oxygen Delivery Me thod DS: Data Data Completed and Pending Labs on day of discharge: Labs from last 24 hours 11/13/23 11/12/23 06:07 20:38 WBC 8.08 11.66 H RBC 4.60 4.54 Hgb 14.2 13.9 Hct 42.2 41.8 MCV 92 92 MCH 31 31 MCHC 34 33 RDW Coeff of Zo 12.4 Plt Count 199 201 Neut % (Auto) 81.9 H Lymph % (Auto) 11.2 L [place] % (Auto) 5.7 Eos % (Auto) 0.7 Baso % (Auto) 0.2 Neut # (Auto) 9.50 H Lymph # (Auto) 1.30 [place] # (Auto) 0.70 Eos # (Auto) 0.10 Baso # (Auto) 0.00 Abs Immat Gran (auto) 0.00 Imm/Tot Granulo (auto) 0.3 ESR 2 INR 1.02 APTT 26 Sodium 137 Potassium 4.0 Chloride 106 Carbon Dioxide 25 Anion Gap 6 L BUN 20 Creatinine 0.9 Estimated Creat Clear 79.48 Estimated GFR 95 Glucose 119 H Hemoglobin A1c 5.6 Calcium 9.1 Magnesium 2.2 Total Bilirubin 0.6 AST 27 ALT 24 Alkaline Phosphatase 61 Troponin I < 0.01 L C-Reactive Protein < 0.5 L NT-Pro-B Natriuret Pep 135 Total Protein 6.3 Albumin 4.2 Triglycerides 82 Cholesterol 163 LDL Cholesterol, Calc 91 HDL Cholesterol 56 TSH 1.670 RPR Screen Pending Discharge Plan Discharge Disposition: Home, Self-Care Date of Admission: 11/12/23 22:54 Attending Provider on Discharge: Shakira Calderon Primary Care Provider: Serena Carmichael Condition: Improved Anticipated Discharge Date/Time: 11/13/23 11:05 Discharge Medications: Continued aspirin [Ayanna Low Dose Aspirin] 81 mg tablet,delayed release (DR/EC) 81 mg PO DAILY celecoxib 200 mg capsule 200 mg PO BID lisinopril-hydrochlorothiazide 20-12.5 mg tablet 1 tab PO DAILY rosuvastatin 20 mg tablet 20 mg PO HS Discharge Orders: Discharge Order (Routine); Ordered 11/13/23 Ordered By: Shakira Calderon Additional Instructions: Keep an eye on symptoms - see PCP in 1-2 weeks for f/u. No changes to home medications. Activity Level: Activity as Tolerated Discharge Diet: Regular Follow Up Appointments: Serena Carmichael MD [Primary Care Provider] - (needs appt with Dr. Carmichael in 1-2 weeks for hospital d/c followup) Forms: [employer] Info Instructions
--- NOTE | 2023-11-13 11:43 | PC.NURSE ---
Discharge: Patient alert and oriented. VSS. Amb. independently. Tolerated a regular diet. Dicharge packet given and signed by patient. Patient discharged with spouse.
[2023-11-14 18:06] LABS: Rapid Plasma Reagin (RPR) Non Reactive (Non Reactive)
== END 2023-11-13 11:40 | disposition home or self-care (01) ==
LOC: ED 20:16 → MEDSURG 22:56
PROVIDERS: Admitting Provider Internal Medicine; Emergency Provider Family Medicine; PCP Emergency Medicine; Visit Provider Internal Medicine
DX: R42 Dizziness and giddiness (principal); R00.1 Bradycardia, unspecified; I10 Essential (primary) hypertension; I66.22 Occlusion and stenosis of left posterior cerebral artery; I65.21 Occlusion and stenosis of right carotid artery; Z78.9 Other specified health status; Z79.82 Long term (current) use of aspirin; E78.5 Hyperlipidemia, unspecified; M19.071 Primary osteoarthritis, right ankle and foot; D36.9 Benign neoplasm, unspecified site; F10.90 Alcohol use, unspecified, uncomplicated; Z96.642 Presence of left artificial hip joint; Z98.890 Other specified postprocedural states
CPT/HCPCS: 36415; 70450; 70496; 70498; 70551; 80053; 80061; 83036; 83735; 83880; 84443; 84484; 85025; 85027; 85610; 85651; 85730; 86140; 86592; 93005; 94761; 96361; 96374; 97161; 99285; G0378; G0426; A9270; J2405; J7030; Q9967

== ENCOUNTER 2024-03-18 14:16 | Outpatient (CLI) | payer OTHER, SELFPAY | END 2024-03-18 14:17 | disposition home or self-care (01) | LOC: LKVREF 14:17 | PROVIDERS: PCP Emergency Medicine; Visit Provider Emergency Medicine | DX: Z01.818 Encounter for other preprocedural examination (principal); I10 Essential (primary) hypertension | CPT/HCPCS: 80048 ==

== ENCOUNTER 2024-12-25 10:18 | Outpatient (CLI) | payer OTHER, SELFPAY | END 2024-12-25 10:19 | disposition home or self-care (01) | LOC: NFLDREF 12-29 16:41 | PROVIDERS: PCP Emergency Medicine; Referring Provider Emergency Medicine; Visit Provider Emergency Medicine | DX: Z00.00 Encounter for general adult medical examination without abnormal findings (principal); I10 Essential (primary) hypertension; E78.2 Mixed hyperlipidemia; R73.01 Impaired fasting glucose; Z12.5 Encounter for screening for malignant neoplasm of prostate | CPT/HCPCS: 80048; 80061; G0103 ==

== ENCOUNTER 2025-03-24 08:33 | Outpatient (CLI) | payer OTHER, SELFPAY ==
--- NOTE | 2025-04-07 12:15 | W.PM.SLEEP ---
Sleep Study Details Details Interpreting Provider: Ozzie Date of Sleep Study: 03/24/25 Sleep Study Details: STUDY TYPE:? Home unattended ? BMI:? 31.56 ORDERING PROVIDER:Feliz Horne INDICATION:? Concern for sleep apnea ? SLEEP SUMMARY:? 461.5 minutes monitored RESPIRATORY SUMMARY:? AHI 10.4 per rule 1A, 2.9 per CMS guideline Low oxygen 86 0.1% of study oxygen less than 90% Snoring 96.8% PERIODIC LIMB MOVEMENTS OF SLEEP:? Not recorded CARDIAC:? Range 51-82, mean 57.7 beats per minute IMPRESSION:? Mild obstructive sleep apnea per rule 1A, negative study per CMS guideline RECOMMENDATION: If there is significant concern for sleep apnea could consider repeat study in sleep lab. If able to treat based on rule 1A would recommend either AutoSet CPAP or dental appliance.
== END 2025-03-24 08:34 | disposition home or self-care (01) ==
LOC: SLEEP 08:33
PROVIDERS: Visit Provider Otolaryngology
DX: G47.33 Obstructive sleep apnea (adult) (pediatric) (principal)
CPT/HCPCS: 95806

== ENCOUNTER 2025-05-12 12:54 | Outpatient (CLI) | payer OTHER, SELFPAY ==
[2025-05-12 21:54] LABS: Hematocrit* 46.7 % (37.0-53.0); Hemoglobin* 15.1 gm/dL (13.5-17.5); Mean Corpuscular HGB Conc 32 gm/dL (32-36); Mean Corpuscular Hemoglobin 31 pg (26-34); Mean Corpuscular Volume 96 fL (80-100); Red Blood Count* 4.89 m/uL (4.30-5.90); White Blood Count* 8.04 K/uL (4.50-11.00)
[2025-05-12 22:13] LABS: Slide Review Reflex No
[2025-05-12 23:17] LABS: Erythrocyte SedimentationRate* 3 mm/hr (2-15)
== END 2025-05-12 12:55 | disposition home or self-care (01) ==
LOC: NPINS 12:55
PROVIDERS: Visit Provider Orthopaedic Surgery
DX: Z47.1 Aftercare following joint replacement surgery (principal); M25.579 Pain in unspecified ankle and joints of unspecified foot
CPT/HCPCS: 85027; 85651; 86140